=== PATIENT | male | born 1990 | race Caucasian/White ===

== ENCOUNTER 2019-11-04 01:20 | Emergency (ER) | payer OTHER ==
[~2019-11-04] VITALS: Ht 180.3 cm; Wt 65.8 kg
[~2019-11-04 01:20] MED LIST: ACETAMINOPHEN-1 EAC1 PO; ACYCLOVIR 400400 MG PO; BACTRIM DS TAB1 EACH PO; DOXYCYCLINE 10100 MG PO; FLEXERIL PO; IBUPROFEN 200200 M1 PO; IBUPROFEN 600600 M1 PO; NAPROSYN500 MG PO; NORCO 5-325 TA1 EACH PO; TRAMADOL 50 MG50 MG PO
[2019-11-04] MEDS ORDERED: IBUPROFEN 800800 MG PO (02:56)
[2019-11-04] MEDS ORDERED: DOXYCYCLINE 10100 MG PO (02:56)
[2019-11-04 03:12] VITALS: BP 138/72
== END 2019-11-04 03:12 | disposition home or self-care (01) ==
LOC: M.ERS 01:20
DX: S83.8X1A Sprain of other specified parts of right knee, initial encounter (principal); L03.115 Cellulitis of right lower limb; Z88.1 Allergy status to other antibiotic agents; Z88.0 Allergy status to penicillin; X58.XXXA Exposure to other specified factors, initial encounter; Y93.89 Activity, other specified; Y92.89 Other specified places as the place of occurrence of the external cause; Y99.8 Other external cause status

== ENCOUNTER 2020-03-31 12:53 | Emergency (ER) | payer OTHER ==
[~2020-03-31] VITALS: Ht 180.3 cm; Wt 65.8 kg
[~2020-03-31 12:53] MED LIST changes: +IBUPROFEN 800800 MG PO
[2020-03-31 13:32] LABS: ABSOLUTE LYMPHOCYTES 1.3 thou/uL (0.8-5.3); ABSOLUTE MONOCYTES 0.3 thou/uL (0.0-1.2); ABSOLUTE NEUTROPHILS 6.2 thou/uL (1.6-8.1); BASOPHILS 0.3 %; EOSINOPHILS 0.5 %; HEMATOCRIT 41.8 % (42.0-52.0); LYMPHOCYTES 16.8 %; MCH 28.8 pg (26.0-34.0); MCHC 33.4 g/dL (28.0-37.0); MCV 86.1 fL (80.0-100.0); MONOCYTES 3.8 %; MPV 7.2 fl. (7.2-11.1); NUCLEATED RBCS 0 /100WBC; PLATELET COUNT* 261 thou/uL (150-400); POLYS 78.6 %; RBC 4.86 mil/uL (4.50-6.00); RDW-CV 13.5 % (10.5-14.5); WBC 7.9 thou/uL (4.0-11.0)
[2020-03-31 13:39] LABS: CALCIUM 9.4 mg/dL (8.5-10.1); CREATININE 0.8 mg/dL (0.6-1.3); POTASSIUM 4.2 mmol/L (3.5-5.1)
[2020-03-31 13:43] LABS: ALBUMIN 3.8 g/dL (3.4-5.0); TOTAL BILIRUBIN 0.3 mg/dL (<0.1-1.0); TOTAL PROTEIN 8.2 g/dL (6.4-8.2)
[2020-03-31 14:11] VITALS: BP 129/77
== END 2020-03-31 14:12 | disposition home or self-care (01) ==
LOC: M.ERS 12:53
PROVIDERS: Physician Assistant
DX: F11.23 Opioid dependence with withdrawal (principal); Z88.1 Allergy status to other antibiotic agents; Z88.0 Allergy status to penicillin